=== PATIENT | female | born 1990 | race Caucasian/White ===

== ENCOUNTER 2022-10-20 09:05 | Outpatient (RCR) | payer OTHER, SELFPAY ==
--- NOTE | 2022-10-20 11:45 | PC.NURSE ---
Renee and 6 week old Doe arrive for support S/P tongue, lip and buccal tie revision. States That changed my world. Everything started healing and then treating the thrush at the same time made all the difference. States is now fully with occasional bottle for dad bonding vs 60/40 because nipples were so painful. Mom has now completed a course of diflucan for herself and Doe finished with Nystatin oral. No signs or symptoms of Thrush at this time.
--- NOTE | 2022-10-20 11:56 | PC.NURSE ---
Doe in healing process after tongue, lip and buccal ties revised per Dr Chino pediatric dentist. Mom states has been faithful in exercises with revision. Discussed and given handout on Suck training to strengthen and relax muscles in mouth. Demo o same given and Mom states we can do those States is awaiting call from Claudia speech therapist that works with Dr Chino to schedule post procedure evaluation. demo's good movement of tongue laterally, up and down, cupping and thrusting out. Latches and feeds well after encouraging mom to roll baby belly to belly Milk transfer obvious. Couplet doing well.
== END 2022-10-20 12:09 | disposition home or self-care (01) ==
LOC: FBCO 09:05
PROVIDERS: PCP Obstetrics & Gynecology; Visit Provider Obstetrics & Gynecology
DX: Z39.1 Encounter for care and examination of lactating mother (principal)
CPT/HCPCS: G0463

== ENCOUNTER 2023-11-16 19:09 | Outpatient (REF) | payer OTHER, SELFPAY | END 2023-11-16 19:10 | disposition home or self-care (01) | LOC: LAB 19:09 | PROVIDERS: PCP Obstetrics & Gynecology; Visit Provider Obstetrics & Gynecology | DX: Z01.419 Encounter for gynecological examination (general) (routine) without abnormal findings (principal) | CPT/HCPCS: 87624; 88175 ==

== ENCOUNTER 2024-11-21 12:17 | Outpatient (REF) | payer OTHER, SELFPAY ==
[2024-11-26 13:08] LABS: Age Gdln ACOG Testing Note (.); IGP, Aptima HPV, rfx 16/18,45 Note (.)
== END 2024-11-21 12:18 | disposition home or self-care (01) ==
LOC: LAB 12:17
PROVIDERS: PCP Obstetrics & Gynecology; Visit Provider Obstetrics & Gynecology
DX: Z01.419 Encounter for gynecological examination (general) (routine) without abnormal findings (principal)
CPT/HCPCS: 87624; 88175

== ENCOUNTER 2025-01-24 09:52 | Outpatient (OUT) | payer OTHER, SELFPAY ==
[2025-01-24 10:17] LABS: Hematocrit 39.3 % (36.0-48.0); Hemoglobin 13.3 g/dL (12.0-16.0); Immature Granulocytes Abs Auto 0.01 10^3/uL (0.00-0.03); Immature Granulocytes Pct Auto 0.1 % (0.0-0.5); Lymphocytes Absolute Auto 2.5 10^3/uL (1.2-3.8); Mean Corpuscular HGB Conc 33.8 g/dL (29.9-35.2); Mean Corpuscular Hemoglobin 29.6 pg (26.7-34.0); Mean Corpuscular Volume 87.5 fL (81.0-99.0); Platelet Count 266 10^3/uL (150-450); Red Blood Count 4.49 10^6/uL (4.20-5.40); White Blood Count 7.4 10^3/uL (4.0-11.0)
[2025-01-24 10:48] LABS: Alanine Aminotransferase 24 U/L (14-59); Albumin Globulin Ratio 1.1; Albumin Level 4.1 g/dL (3.4-5.0); Alkaline Phosphatase 42 U/L (46-116); Anion Gap 12.9; Aspartate Amino Transferase 16 U/L (15-37); Blood Urea Nitrogen 13.0 mg/dL (7.0-18.0); Calcium 9.3 mg/dL (8.5-10.1); Carbon Dioxide 29.8 mmol/L (21.0-32.0); Chloride 102 mmol/L (98-107); Cholesterol 232 mg/dL (<=200); Estimated GFR (African America >60 (>=60 mL/min/1.73m^2); Estimated GFR (Non-African Ame >60 (>=60 mL/min/1.73m^2); Globulin 3.7 g/dL; Glucose 98 mg/dL (74-106); HDL Cholesterol 75 mg/dL (40-60); Potassium 4.7 mmol/L (3.5-5.1); Sodium 140 mmol/L (136-145); Total Protein 7.8 g/dL (6.4-8.2); Triglycerides 59 mg/dL (<=150); VLDL CHOLESTEROL 11.8 mg/dL
== END 2025-01-24 09:53 | disposition home or self-care (01) ==
LOC: LAB 09:53
PROVIDERS: PCP Family Medicine; Visit Provider Family Medicine
DX: Z00.00 Encounter for general adult medical examination without abnormal findings (principal)
CPT/HCPCS: 36415; 80053; 80061; 85025